=== PATIENT | female | born 2000 | race Caucasian/White ===

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

== ENCOUNTER 2021-11-10 16:15 | Emergency (ER) | payer BC ==
--- OUTSIDE RECORDS SUMMARY | 2021-11-10 16:20 | XMS REPORT | Continuity of Care Document ---
:2000 Author Organization [facility] t Address [address] [place] [address] Care Team Providers Name Role Phone GREGORIO Primary Care Physician Unavailable Ignacia JOEL Attending Clinician Unavailable Rosa BOX, L Attending Clinician ZACH Attending Clinician Unavailable Payers Payer Name Policy Type Policy Number Effective Date Expiration Date S [facility] [id number] 2018 00:00:00 Problems Condition Condition Condition Status Onset Resolution Last Treating Co mments Source Name Details Category Date Date Treatment Clinician Date Low TSH Low TSH Disease Active Univers level level 8-09 ity of 00:00: [address] Depression Depression Disease Active U nivers 3-11 ity of 00:00: [address] Dysmenorrh Dysmenorrh Disease Active U nivers ea in e[place] 1-07 [place] [facility] Episodic Episodic Disease Active 2014-06 Unive rs headache headache 0- ity of 00:00: [address] Allergies, Adverse Reactions, Alerts Allergy Allergy Status Severity Reaction(s) Onset Inactive Treating Comm ents Source Name Type Date Date Clinician NO KNOWN Drug Active Univers ALLERGIE Class ity of S [facility] Social History Social Habit Start Date Stop Date Quantity Comments Source History of tobacco Cigarette Smoker University of use [facility] Exposure to Not sure University of SARS-CoV-2 (event) [facility] Alcohol intake 2021-09-17 2021-09-17 Current University of 00:00:00 00:00:00 non-drinker of [facility] alcohol Branch (finding) Cigarettes smoked 2019-02-26 2019-02-26 Univers ity of current (pack per 00:00:00 [facility]00 [facility] - Reported Branch Tobacco use and 2019-02-26 2019-02-26 Never used Universit y of exposure 00:00:00 00:00:00 [facility] Sex Assigned At [birth year] Universit y of 00:00:00 00:00:00 [facility] Smoking Status Start Date Stop Date Source Current every day smoker 2019-02-26 00:00:00 Uni versity [facility] Medications Ordered Filled Start Stop Current Ordering Indication Dosage Frequency Signature Comments Components Source Medication Medication Date Date Medication? Clinician (SIG) Name Name methylPREDN Yes [id number] 84mg Take 21 Univers ISolone 4-15 9100 tablets by ity of (MEDROL, 00:00: mouth [place] MAURISIO,) 4 mg 00 SEE-INSTRU Med ical tablets CTIONS. Branch follow package directions methylPREDN Yes [id number] 84mg Take 21 Univers ISolone 4-15 9100 tablets by ity of (MEDROL, 00:00: mouth [place] MAURISIO,) 4 mg 00 SEE-INSTRU Med ical tablets CTIONS. Branch follow package directions ondansetron Yes [id number] 4mg Take 1 Univers (ZOFRAN 4-14 tablet by ity of ODT) 4 mg 00:00: mouth [place] disintegrat 00 every 8 Medic al ing tablet (eight) Branch hours as needed for Nausea and Vomiting (N/V). ondansetron Yes [id number] 4mg Take 1 Univers (ZOFRAN 4-14 tablet by ity of ODT) 4 mg 00:00: mouth [place] disintegrat 00 every 8 Medic al ing tablet (eight) Branch hours as needed for Nausea and Vomiting (N/V). Vital Signs Vital Name Observation Time Observation Value Comments Source Systolic blood 2021-09-17 15:36:00 117 mm[facility]Hg[facility] Diastolic blood 2021-09-17 15:36:00 74 mm[Hg] [facility] pressure [facility] Heart rate 2021-09-17 15:36:00 95 /min [facility] Body height 2021-09-17 15:36:00 149.9 cm [facility] Body weight 2021-09-17 15:36:00 47.174 kg [facility] BMI 2021-09-17 15:36:00 21.01 kg/m2 [facility] Oxygen saturation 2021-09-17 15:36:00 100 /min [facility] in Arterial blood [facility] Br anch by Pulse oximetry Procedures This patient has no known procedures. Encounters Start End Encounter Admission Attending Care Care Encounter Source Date/Time Date/Time Type Type Clinicians Facility Department ID 2021-09-18 2021-09-18 [facility] [id number] Univers 08:15:00 08:15:00 MARIANA gal [facility] 2021-09-18 2021-09-18 Telephone [facility] [id number] [facility] 00:00:00 00:00:00 [facility] [id number] it y [facility] [id number] Jose as VITOR?BLEA [id number] [address] MEDICAL OFFICE BUILDING 2021-09-17 2021-09-17 Outpatient Stephan [facility] [id number] Univers 15:45:00 15:45:00 IGNACIO gal [facility] 2021-09-17 2021-09-17 Office [facility] [id number] Univers 10:15:00 10:51:47 Visit [facility] [id number] it y [facility] [id number] Jose as VITOR?BLEA [id number] [address] MEDICAL OFFICE BUILDING Results This patient has no known results.
--- NOTE | 2021-11-10 17:04 | EDPHYS ---
Physician Documentation [facility] Name: Boris Danielle Age: 21 yrs Sex: Female : 2000 Arrival Date: 11/10/2021 Time: 16:20 Bed DIS1 Private MD: ED Physician Braxton Cordon HPI: 11/10 16:59 This 21 yrs old Female presents to ER via Ambulatory with complaints of Rash. rn 16:59 The patient's rash thought to be caused by Dermatitis. The rash is located on the body rn diffusely. The rash can be described as erythematous, vesicular. Onset: The symptoms/episode began/occurred 1 week(s) ago. Severity of symptoms: At their worst the symptoms were moderate in the emergency department the symptoms are unchanged. Treatment given at home: Benadryl. The patient has not experienced similar symptoms in the past. Pt reports 1 week of rash, diffuse, no longer draining but still itching. No sob. Reports started after working outside and thinks is poison azalia. Does not feel ill. . Historical: - Allergies: 16:38 Bactrim; jb4 - Home Meds: 16:38 None [Active]; jb4 - PMHx: 16:38 Anxiety; Migraines; PTSD; jb4 - PSHx: 16:38 None; jb4 - Immunization history:: Adult Immunizations up to date. - Social history:: Smoking status: Reported history of juuling and/or vaping. - Family history:: not pertinent. - Hospitalizations: : No recent hospitalization is reported. ROS: 16:59 Constitutional: Negative for fever, chills, and weight loss, Cardiovascular: Negative rn for chest pain, palpitations, and edema, Respiratory: Negative for shortness of breath, cough, wheezing, and pleuritic chest pain, Abdomen/GI: Negative for abdominal pain, nausea, vomiting, diarrhea, and constipation, Skin: + diffuse rash Exam: 16:59 Constitutional: This is a well developed, well nourished patient who is awake, alert, rn and in no acute distress. Seems anxious. Skin: Diffuse rash, crusting and dry, no drainage, + excoriations, no cellulitis, no bullae, no skin sloughing. MS/ Extremity: Pulses equal, no cyanosis. Neurovascular intact. Full, normal range of motion. Equal circumference. Neuro: Awake and alert, GCS 15 Vital Signs: 16:35 BP 129 / 84; Pulse 105; Resp 16; Temp 99.2(O); Pulse Ox 99% on R/A; Weight 45.36 kg jb4 (R); Height 4 ft. 11 in. (149.86 cm) (R); Pain 0/10; 16:35 Body Mass Index 20.20 (45.36 kg, 149.86 cm) jb4 MDM: 16:50 Patient medically screened. rn 16:59 Differential diagnosis: poison azalia dermatitis, dermatitis, acute allergic reaction. rn Data reviewed: vital signs, nurses notes, and as a result, I will discharge patient. Counseling: I had a detailed discussion with the patient and/or guardian regarding: the historical points, exam findings, and any diagnostic results supporting the discharge/admit diagnosis, the need for outpatient follow up, to return to the emergency department if symptoms worsen or persist or if there are any questions or concerns that arise at home. Special discussion: I discussed with the patient/guardian in detail that at this point there is no indication for admission to the hospital. It is understood, however, that if the symptoms persist or worsen the patient needs to return immediately for re-evaluation. Administered Medications: 17:18 Not Given (Patient Refused): SOLU-Medrol (methylPREDNISolone sodium succinate) 125 mg iw IM once Disposition Summary: 11/10/21 17:03 Discharge Ordered Location: Home rn Problem: new rn Symptoms: are unchanged rn Condition: Stable rn Diagnosis - Irritant contact dermatitis due to plants, except food rn Followup: rn - With: Private Physician - When: As needed - Reason: Recheck today's complaints, Re-evaluation by your physician Discharge Instructions: - Discharge Summary Sheet rn - Contact Dermatitis rn - Poison [place] Dermatitis rn Forms: - Medication Reconciliation Form rn - Thank You Letter 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
--- NOTE | 2021-11-10 17:04 | ER ---
Nurse's Notes [facility] Name: Boris Danielle Age: 21 yrs Sex: Female : 2000 Arrival Date: 11/10/2021 Time: 16:20 Bed DIS1 Private MD: Diagnosis: Irritant contact dermatitis due to plants, except food Presentation: 11/10 16:30 Chief complaint: Chief complaint: Patient states: I was outside cleaning the yard and jb4 came into contact with poison ashish. The rash was getting pretty bad. I think it is getting better now. I wanted to get it checked. 16:35 Coronavirus screen: At this time, the client does not indicate any symptoms associated jb4 with coronavirus-19. Ebola Screen: No symptoms or risks identified at this time. Initial Sepsis Screen: Does the patient meet any 2 criteria? HR > 90 bpm. Yes Does the patient have a suspected source of infection? No. Patient's initial sepsis screen is negative. Risk Assessment: Do you want to hurt yourself or someone else? Patient reports no desire to harm self or others. Onset of symptoms was November 10, 2021. Transition of care: patient was not received from another setting of care. 16:35 Method Of Arrival: Ambulatory jb4 16:35 Acuity: MORIAH 3 jb4 Historical: - Allergies: 16:38 Bactrim; jb4 - Home Meds: 16:38 None [Active]; jb4 - PMHx: 16:38 Anxiety; Migraines; PTSD; jb4 - PSHx: 16:38 None; jb4 - Immunization history:: Adult Immunizations up to date. - Social history:: Smoking status: Reported history of juuling and/or vaping. - Family history:: not pertinent. - Hospitalizations: : No recent hospitalization is reported. Vital Signs: 16:35 BP 129 / 84; Pulse 105; Resp 16; Temp 99.2(O); Pulse Ox 99% on R/A; Weight 45.36 kg jb4 (R); Height 4 ft. 11 in. (149.86 cm) (R); Pain 0/10; 16:35 Body Mass Index 20.20 (45.36 kg, 149.86 cm) jb4 ED Course: 16:20 Patient arrived in ED. rg4 16:24 Mickail, Chaz, PA is PHCP. [facility] 16:24 Braxton Cordon MD is Attending Physician. [facility] 16:38 Triage completed. jb 16:38 Arm band placed on right wrist. jb4 16:50 Braxton Cordon MD is Attending Physician. rn 17:14 Eliane Betancourt, RN is Primary Nurse. iw Administered Medications: 17:18 Not Given (Patient Refused): SOLU-Medrol (methylPREDNISolone sodium succinate) 125 mg iw IM once Outcome: 17:03 Discharge ordered by . rn 17:19 Patient left the ED. iw Signatures: Chaz Raza PA PA Eliane Adam RN RN Braxton Cordon MD MD rn Garcia, Rubi 4 Toni Cagle RN RN jb4 Corrections: (The following items were deleted from the chart) 16:38 16:30 Chief complaint: jb jb
[2021-11-10] MEDS ORDERED: METHYLPREDNISOLONE 125 MG INJ ONE (17:19)
[2021-11-10 18:18] VITALS: BP 129/84; TEMP 99.2; O2SAT 99
== END 2021-11-10 17:19 | disposition home or self-care (01) ==
LOC: ER 16:15
DX: L24.7 Irritant contact dermatitis due to plants, except food (principal); Z88.1 Allergy status to other antibiotic agents
CPT/HCPCS: 99281; J2930